=== PATIENT | female | born 1965 | race Caucasian/White ===

== ENCOUNTER → 2021-02-05 | Outpatient (CLI) | payer OTHER ==
[~2021-02-05] MED LIST: NORCO 5-325 TA1 EACH PO
== END ==
LOC: KOH-I 01-25 10:30
DX: M81.0 Age-related osteoporosis without current pathological fracture (principal); M51.36 Other intervertebral disc degeneration, lumbar region; M50.13 Cervical disc disorder with radiculopathy, cervicothoracic region; M85.852 Other specified disorders of bone density and structure, left thigh; M25.78 Osteophyte, vertebrae
CPT/HCPCS: 72125; 77080

== ENCOUNTER → 2021-09-10 | Outpatient (CLI) | payer OTHER | LOC: KOH-I 10:28 → MRI 10:30 | DX: M50.31 Other cervical disc degeneration, high cervical region (principal); M47.812 Spondylosis without myelopathy or radiculopathy, cervical region; M48.02 Spinal stenosis, cervical region; M25.78 Osteophyte, vertebrae | CPT/HCPCS: 72141 ==